=== PATIENT | female | born 2000 | race Hispanic/Latino ===

== ENCOUNTER 2019-10-17 16:14 | Outpatient (CLI) | payer MEDICAID ==
--- NOTE | 2019-10-17 17:06 | XRay Report ---
CLINICAL DATA: MAIN: BACK PAIN; JUMPING ON TRAMPOLINE AT [employer], PAIN EVER SINCE, OFF AND ON X 6 MONTHS TECHNICAL DATA: AP and lateral views were obtained of the thoracic spine. FINDINGS: The thoracic vertebrae have normal anatomic height and alignment. The disc spaces are normal. No sig nificant degenerative changes are present. No evidence of a fracture. There is no paraspinal edema or hemorrhage. IMPRESSION: Normal thoracic spine. Signer Name: Jamarcus Ku MD Signed: 10/17/2019 5:02 PM Workstation Name: [id number]
--- NOTE | 2019-10-17 17:08 | XRay Report ---
CLINICAL DATA: BACK PAIN TECHNICAL DATA: AP, lateral, oblique, and odontoid views of the cervical spine were obtained FINDINGS: The vertebral body heights, disc spaces, and alignment are well within normal limits. There is no gin dence of fracture. No prevertebral soft tissue swelling is evident. Flexion and extension views demon strate normal range of motion. IMPRESSION: Normal examination of the cervical spine Signer Name: Jamarcus Ku MD Signed: 10/17/2019 5:03 PM Workstation Name: [id number]
== END 2019-10-17 16:15 | disposition home or self-care (01) ==
LOC: XRAY 16:14
PROVIDERS: ATTEND Pediatrics
DX: M54.5 Low back pain (principal)
CPT/HCPCS: 72050; 72070